=== PATIENT | female | born 2005 | race Caucasian/White ===

== ENCOUNTER 2023-07-10 16:41 | Emergency (ER) | payer OTHER ==
[~2023-07-10] VITALS: Ht 162.6 cm; Wt 89.5 kg
[~2023-07-10 16:41] MED LIST: AMOXICILLIN500 M1 PO; MUPIROCIN15 GM TOP
[2023-07-10 17:37] VITALS: BP 110/61
== END 2023-07-10 17:38 | disposition home or self-care (01) ==
LOC: ED 16:41
DX: S50.862A Insect bite (nonvenomous) of left forearm, initial encounter (principal); S50.861A Insect bite (nonvenomous) of right forearm, initial encounter; F17.200 Nicotine dependence, unspecified, uncomplicated; W57.XXXA Bitten or stung by nonvenomous insect and other nonvenomous arthropods, initial encounter
CPT/HCPCS: 99281

== ENCOUNTER 2024-05-16 22:09 | Emergency (ER) | payer OTHER ==
[~2024-05-16] VITALS: Ht 162.6 cm; Wt 129.0 kg
[2024-05-16] MEDS ORDERED: NEXPLANON68 MG (22:31)
[2024-05-16 23:46] LABS: INFLUENZA B NAA NEGATIVE (NEGATIVE); RESPIRATORY SYNCYTIAL VIR NAA NEGATIVE (NEGATIVE)
[2024-05-17 00:09] VITALS: BP 131/80
== END 2024-05-17 00:11 | disposition home or self-care (01) ==
LOC: ED 22:09
PROVIDERS: Internal Medicine
DX: B34.9 Viral infection, unspecified (principal); Z02.79 Encounter for issue of other medical certificate; F17.200 Nicotine dependence, unspecified, uncomplicated
CPT/HCPCS: 87502; 99283; U0002

== ENCOUNTER 2025-03-04 06:29 | Emergency (ER) | payer BC, OTHER ==
[~2025-03-04] VITALS: Ht 162.6 cm; Wt 130.4 kg
[~2025-03-04 06:29] MED LIST changes: +NEXPLANON68 MG
[2025-03-04] MEDS ORDERED: LIDOCAINE HCL 4% 50 ML BTL TOP ONE (07:00)
[2025-03-04 07:16] LABS: CORONAVIRUS COVID-19 AG NEGATIVE (NEGATIVE)
[2025-03-04 07:51] VITALS: BP 115/77
== END 2025-03-04 07:52 | disposition home or self-care (01) ==
LOC: ED 06:29
PROVIDERS: Family Medicine
DX: J02.9 Acute pharyngitis, unspecified (principal); F17.200 Nicotine dependence, unspecified, uncomplicated; Z79.899 Other long term (current) drug therapy
CPT/HCPCS: 36415; 87651; 99283; U0002

== ENCOUNTER 2025-08-24 05:07 | Emergency (ER) | payer OTHER ==
[~2025-08-24] VITALS: Ht 162.6 cm; Wt 131.0 kg
[2025-08-24] MEDS ORDERED: AVIANE1 EACH PO (05:24)
[2025-08-24 05:57] LABS: CORONAVIRUS COVID-19 AG NEGATIVE (NEGATIVE)
[2025-08-24 06:25] VITALS: BP 120/73
== END 2025-08-24 06:27 | disposition home or self-care (01) ==
LOC: ED 05:07
PROVIDERS: Family Medicine
DX: J02.9 Acute pharyngitis, unspecified (principal); F17.200 Nicotine dependence, unspecified, uncomplicated
CPT/HCPCS: 36415; 87651; 99283